=== PATIENT | male | born 1995 | race African-American/Black ===

== ENCOUNTER 2017-01-10 14:45 | Emergency (ER) | payer OTHER ==
[~2017-01-10] VITALS: Ht 185.4 cm; Wt 110.7 kg
[~2017-01-10 14:45] MED LIST: NORPTMEDS CO
[2017-01-10 14:51] VITALS: BP 153/91
[2017-01-10 15:42] LABS: Basophils # (auto) 0 uL; Basophils % (auto) 0.4 % (0.0-2.0); Eosinophils # (auto) 0.2 uL; Eosinophils % (auto) 2.8 % (0.0-7.0); Hematocrit 44.3 % (41.0-53.0); Hemoglobin 15.2 g/dL (13.5-17.5); Lymphocytes # (auto) 1.5 uL; Mean Corpuscular Hemoglobin 27.8 pg (28.0-32.0); Mean Corpuscular Hgb Conc. 34.3 g/dL (32.0-36.0); Mean Corpuscular Volume 80.9 fL (80.0-100.0); Mean Platelet Volume 8.1 fL (7.4-10.4); Monocytes # (auto) 0.7 uL; Monocytes % (auto) 11.8 % (0.0-12.0); Neutrophils # (auto) 3.6 uL; Platelet Count (auto) 338 10^3/uL (140-450); Red Cell Distribution Width 13.9 % (11.6-16.0); White Blood Cell 6.1 10^3/uL (4.4-10.8)
[2017-01-10 16:03] LABS: Blood Urea Nitrogen 11 mg/dL (7-18); Chloride 106 mmol/L (98-107); Potassium 3.8 mmol/L (3.5-5.1); Sodium 142 mmol/L (136-145)
[2017-01-10 16:06] LABS: Albumin 4.2 g/dL (3.4-5.0); Anion Gap 12 (5-15); Aspartate Aminotransferase 34 U/L (15-37); BUN/Creatinine Ratio 12.8; Carbon Dioxide 24 mmol/L (21-32); GFR African American 144 mL/min; GFR Non-African American 119 mL/min; Glucose 82 mg/dL (74-106)
[2017-01-10 16:11] LABS: Alkaline Phosphatase 98 U/L (45-117); Bilirubin, Total 1.6 mg/dL (0.2-1.0); Total Protein 7.9 g/dL (6.4-8.2)
== END 2017-01-10 18:22 | disposition left against medical advice (07) ==
LOC: ER 14:54
DX: R06.02 Shortness of breath (principal); R07.9 Chest pain, unspecified; Z53.21 Procedure and treatment not carried out due to patient leaving prior to being seen by health care provider
CPT/HCPCS: 36415; 80053; 83735; 84484; 85025; 93005

== ENCOUNTER 2021-07-21 14:39 | Emergency (ER) | payer OTHER ==
[~2021-07-21] VITALS: Ht 188 cm; Wt 124.3 kg
[2021-07-21 16:17] VITALS: BP 130/91
== END 2021-07-21 17:56 | disposition home or self-care (01) ==
LOC: ER 14:39
DX: L03.211 Cellulitis of face (principal)

== ENCOUNTER 2021-12-24 13:59 | Emergency (ER) | payer OTHER ==
[~2021-12-24] VITALS: Ht 188 cm; Wt 128.8 kg
[2021-12-24] MEDS ORDERED: cefTRIAXone 1GM/50ML D5W 50 ML IV ONE (14:30)
[2021-12-24] MEDS ORDERED: SODIUM CHLORIDE 0.9% 1,000 ML IV ONE ×2 (14:30→21:30)
[2021-12-24 15:55] LABS: Basophils # (auto) 0 10 ^3/uL (0-0.2); Basophils % (auto) 0.4 % (0.0-2.0); Eosinophils # (auto) 0.3 10 ^3/uL (0-0.8); Eosinophils % (auto) 4.5 % (0.0-7.0); Hematocrit 41.4 % (41.0-53.0); Hemoglobin 14.3 g/dL (13.5-17.5); Lymphocytes # (auto) 1.6 10 ^3/uL (0.4-5.4); Lymphocytes % (auto) 20.6 % (10.0-50.0); Mean Corpuscular Hemoglobin 27.8 pg (28.0-32.0); Mean Corpuscular Hgb Conc. 34.6 g/dL (32.0-36.0); Mean Corpuscular Volume 80.3 fL (80.0-100.0); Monocytes # (auto) 0.7 10 ^3/uL (0-1.3); Monocytes % (auto) 9.3 % (0.0-12.0); Neutrophils # (auto) 4.9 10 ^3/uL (1.6-8.6); Neutrophils % (auto) 65.2 % (37.0-80.0); Nucleated Red Blood Cells % 0.1 %; Red Blood Cells 5.15 10^6/uL (4.5-5.90); Red Cell Distribution Width 13.5 % (11.8-14.3); White Blood Cell 7.6 10^3/uL (4.4-10.8)
[2021-12-24 15:56] LABS: CRP High Sensitivity 0.22 mg/dL (< 0.3); Calcium 8.8 mg/dL (8.5-10.1)
[2021-12-24 15:59] LABS: BUN/Creatinine Ratio 16.7; Bilirubin, Total 1.3 mg/dL (0.2-1.0); Total Protein 7.7 g/dL (6.4-8.2)
[2021-12-24 18:07] VITALS: BP 125/78
[2021-12-24 20:27] LABS: Urine Bacteria NONE SEEN /hpf (None Seen); Urine Blood 3+ /uL (Negative); Urine Specific Gravity 1.022 (1.001-1.035); Urine WBC 282 /hpf (0 - 3)
[2021-12-24] MEDS ORDERED: IOHEXOL 300 MG/ML 100ML BOTTLE IJ ONE (21:27)
[2021-12-24] MEDS ORDERED: PHENAZOPYRIDINE HCL 100 MG TAB PO ONE (23:00)
[2021-12-25 01:00] LABS: Basophils # (auto) 0 10 ^3/uL (0-0.2); Basophils % (auto) 0.2 % (0.0-2.0); Eosinophils # (auto) 0.3 10 ^3/uL (0-0.8); Eosinophils % (auto) 3.3 % (0.0-7.0); Hematocrit 39.1 % (41.0-53.0); Hemoglobin 13.6 g/dL (13.5-17.5); Lymphocytes # (auto) 1.4 10 ^3/uL (0.4-5.4); Lymphocytes % (auto) 16.7 % (10.0-50.0); Mean Corpuscular Hemoglobin 28.2 pg (28.0-32.0); Mean Corpuscular Hgb Conc. 34.8 g/dL (32.0-36.0); Mean Corpuscular Volume 81.2 fL (80.0-100.0); Monocytes # (auto) 0.5 10 ^3/uL (0-1.3); Monocytes % (auto) 6.3 % (0.0-12.0); Neutrophils # (auto) 6.3 10 ^3/uL (1.6-8.6); Neutrophils % (auto) 73.5 % (37.0-80.0); Red Blood Cells 4.81 10^6/uL (4.5-5.90); Red Cell Distribution Width 13.5 % (11.8-14.3); White Blood Cell 8.5 10^3/uL (4.4-10.8)
== END 2021-12-25 02:04 | disposition home or self-care (01) ==
LOC: ER 13:59
DX: J06.9 Acute upper respiratory infection, unspecified (principal); R31.9 Hematuria, unspecified; Z20.822 Contact with and (suspected) exposure to COVID-19
CPT/HCPCS: 36415; 71045; 74177; 80053; 81001; 83605; 85025; 86141; 87040; 87426; 87804; 96361; 96365; 99285; J0696; J7030; Q9967